=== PATIENT | male | born 1945 | race Caucasian/White ===

== ENCOUNTER 2017-07-26 19:30 | Outpatient (CLI) | payer MEDICARE ==
[2015-01-04 09:17] VITALS: O2SAT 93
[2017-07-26 15:17] LABS: BASOPHILS % (AUTO) 1 % (0-3); EOSINOPHILS % (AUTO) 3 % (0-9); HEMATOCRIT 40 % (39-53); MEAN CORPUSCULAR HGB CONC 32.9 gm/dl (32.0-36.0); MEAN CORPUSCULAR VOLUME 87 fL (80-100); MONOCYTES % (AUTO) 8.2 % (0-12); NEUTROPHILS % (AUTO) 59.5 % (37-80)
== END 2017-07-26 19:31 | disposition home or self-care (01) | DRG 558 ==
LOC: CONVCARE 19:30
PROVIDERS: ATTEND Orthopaedic Surgery
DX: M65.332 Trigger finger, left middle finger (principal); M18.9 Osteoarthritis of first carpometacarpal joint, unspecified; M65.331 Trigger finger, right middle finger; M25.551 Pain in right hip; Z96.641 Presence of right artificial hip joint
CPT/HCPCS: 36415; 73130; 73502; 85025; 85651

== ENCOUNTER 2018-05-16 10:29 | Outpatient (CLI) | payer MEDICARE ==
[2015-01-04 09:17] VITALS: O2SAT 93
== END 2018-05-16 10:30 | disposition home or self-care (01) | DRG 556 ==
LOC: CONVCARE 10:29
PROVIDERS: ATTEND Orthopaedic Surgery
DX: M25.551 Pain in right hip (principal)
CPT/HCPCS: 72120; 73610